=== PATIENT | male | born 1985 | race Caucasian/White ===

== ENCOUNTER 2016-09-25 12:48 | Emergency (ER) | payer SELFPAY ==
[2016-09-25 13:12] VITALS: BP 139/83
--- NOTE | 2016-09-25 14:14 | ERNOTE ---
Date of Service: 09/25/16 Stated Complaint: TIGHT COUGH/RIB PAIN Presenting Symptoms:: cough - in the Am only Source: patient Exam Limitations: no limitations Immunizations: IMMUNIZATION HX Immunizations Up to Date Yes History of Influenza Vaccine No Allergies/Adverse Reactions: Allergies No Known Allergies Allergy (Unverified 09/25/16 13:12) Home Medications: HOME MEDICATIONS Azithromycin [Zithromax] 500 mg PO NOW #6 tab 09/25/16 [Last Taken Unknown] - History of Present Ilness Narrative: 31-year-old male presents to the emergency room for right ear pain, coughing in the morning and pain to his chest when he coughs. patient describes his pain as a soreness to both his pectoral/armpit muscle area whe he coughs. denies chest pain with any other activity. Patient states the morning sometimes he coughs up green phlegm. Symptoms going on for about a week. Date (Duration): 09/25/16 Timing: intermittent Severity: mild Frequency/Possible Cause: Reports: occasional episodes, unknown cause Modifying Factors - Improves: Reports: nothing Modifying Factors - Worsens: Reports: nothing Associated Symptoms: Reports: chest pain/soreness, cough, nasal congestion, earache. Denies: shortness of breath, wheezing, nasal drainage, dizziness, lightheadedness, headache, sore throat, fever/chills Review of Systems - Review of Systems Constitutional: Present: See HPI EYE: Present: no symptoms reported ENT: Present: See HPI, ear pain Respiratory: Present: See HPI, cough Cardiology: Present: See HPI Gastrointestinal/Abdominal: Present: no symptoms reported Genitourinary: Present: no symptoms reported Musculoskeletal: Present: See HPI, muscle pain Skin: Present: no symptoms reported Neurological: Present: no symptoms reported Endocrine: Present: no symptoms reported Hematologic/Lymphatic: Present: no symptoms reported Psych: Present: no symptoms reported - Patient's Past Medical History Patient History - Medical: No pertinent hx Patient History - Cardiac/Respiratory: No pertinent hx Patient History - Cancer: No Hx of Cancer Patient History - Surgical Procedures: No surgical history Patient History - Other: None - Social History Smoking Status: Former smoker Have you smoked in the past 12 months: Yes - Immunizations Immunizations Up to Date: Yes History of Influenza Vaccine: No Physical Exam - Physical Exam Narrative: Patient's right TM is bulging and slightly red, left TM is bulging with clear fluid. Both nasal turbines are boggy and pale in color. Lungs sounds are clear bilaterally. States that he only coughs up phlegm in the morning after his sleeping. General Appearance: Present: wd/wn, alert, no apparent distress Eye Exam: Normal inspection: bilateral Ears, Nose, Throat: Present: abnormal TM (R), nasal congestion, normal pharynx. Absent: hearing decreased Neck: Present: nontender, lymphadenopathy (L) Respiratory: Present: no respiratory distress, normal breath sounds, no accessory muscle use, lungs clear, chest tenderness. Absent: accessory muscle use, decreased breath sounds Cardiovascular/Chest: Present: regular rate, rhythm, no murmur, normal peripheral pulses Gastrointestinal/Abdominal: Present: normal bowel sounds, nontender, soft Back Exam: Present: normal inspection, normal range of motion Extremity Exam: Present: normal inspection, no edema Neurological Exam: Present: alert, oriented, normal mood/affect Skin Exam: Present: normal color, warm/dry Lymphatic Exam: Present: no adenopathy ED Progress - Vital Signs Patient's Vital Signs:: I have reviewed the patient's vital signs. Vital Signs: Vital Signs 09/25/16 13:08 Temperature 36.9 C Pulse Rate 68 Respiratory 12 Rate Blood Pressure 139/83 O2 Sat by Pulse 97 Oximetry - Progress/Reassessment Chief Complaint: Upper Respiratory Symptoms Progress:: Pain free at discharge Plan - Plan Plan: Patient is going to try OTC allergy medication and nose spray for allergies. Departure - Departure Clinical Impression: Otitis media Qualifiers: Otitis media type: unspecified Laterality: right Chronicity: unspecified Qualified Code(s): H66.91 - Otitis media, unspecified, right ear Disposition: Home self-care Condition: Stable Instructions: Allergies, [id number], Nasal Allergies, [id number], Form - Excuse from Work, School, or Physical Activity Additional Instructions: Take all antibiotics as prescribed. You make take OTC allergy medication and nasal spray as directed for allergies. Return to the emergency room if symptoms persist or new symptoms arise. Follow-up with your primary care provider in the next 2-3 days if needed. Prescriptions: Azithromycin [Zithromax] 500 mg PO NOW #6 tab
== END 2016-09-25 14:16 | disposition home or self-care (01) ==
LOC: ER 12:48
DX: H66.91 Otitis media, unspecified, right ear (principal); Z87.891 Personal history of nicotine dependence